=== PATIENT | female | born 2000 | race Two or more races ===

== ENCOUNTER 2023-04-22 16:24 | Emergency (ER) | payer OTHER ==
[~2023-04-22] VITALS: Ht 157.5 cm; Wt 50.8 kg
[2023-04-22 20:49] LABS: HEMATOCRIT 36.4 % (36.0-45.00); MEAN CELL VOLUME 78.5 fL (80.00-100.00); MEAN CORPUSCULAR HEMOGLOBIN 25.9 pg (27.00-32.0); PLATELET COUNT 346 K/uL (150-450); RED BLOOD COUNT 4.64 M/uL (4.00-6.00); RED CELL DISTRIBUTION WIDTH 15.1 % (11.5-14.5)
== END 2023-04-23 | disposition home or self-care (01) ==
LOC: ER 16:25 → EMR PED 16:54
PROVIDERS: Emergency Medicine
DX: N64.4 Mastodynia (principal)